=== PATIENT | female | born 1965 | race Caucasian/White ===

== ENCOUNTER 2020-03-07 14:37 | Outpatient (CLI) | payer OTHER, SELFPAY ==
--- NOTE | ~2020-03-07 | MM_ITS ---
EXAMINATION: MM screening tessa BI w nathaly HISTORY: Screening TECHNIQUE: Craniocaudal and mediolateral oblique 3-D tomosynthesis images were obtained and synthetic 2-D images were generated. CAD analysis was submitted and interpreted. COMPARISON: Comparison to multiple prior studies sequentially, with oldest reviewed study dated 01/18. BREAST PARENCHYMAL COMPOSITION: There are scattered areas of fibroglandular density. FINDINGS: There is no evidence of suspicious mass, calcification, or architectural distortion to sugg est malignancy in either breast. There has been no suspicious interval change. IMPRESSION: 1. No mammographic evidence of malignancy. 2. Recommend routine screening mammography in one year. BI-RADS Category 1: Negative Reviewed, dictated and finalized at location A.
== END 2020-03-07 14:38 | disposition home or self-care (01) ==
PROVIDERS: PCP Internal Medicine; Visit Provider Obstetrics & Gynecology
DX: Z12.31 Encounter for screening mammogram for malignant neoplasm of breast (principal)
CPT/HCPCS: 77063; 77067

== ENCOUNTER 2021-03-09 07:32 | Outpatient (CLI) | payer OTHER, SELFPAY ==
--- NOTE | ~2021-03-09 | MM_ITS ---
EXAMINATION: MM screening tessa BI w nathaly HISTORY: Screening TECHNIQUE: Craniocaudal and mediolateral oblique 3-D tomosynthesis images were obtained and synthetic 2-D images were generated. CAD analysis was submitted and interpreted. COMPARISON: Comparison to multiple prior studies sequentially, with oldest reviewed study dated 01/20. BREAST PARENCHYMAL COMPOSITION: There are scattered areas of fibroglandular density. FINDINGS: There is no evidence of suspicious mass, calcification, or architectural distortion to sugg est malignancy in either breast. There has been no suspicious interval change. IMPRESSION: 1. No mammographic evidence of malignancy. 2. Recommend routine screening mammography in one year. BI-RADS Category 1: Negative Reviewed, dictated and finalized at location A.
== END 2021-03-09 07:33 | disposition home or self-care (01) ==
LOC: ANHIMG 07:34
PROVIDERS: PCP Internal Medicine; Visit Provider Obstetrics & Gynecology
DX: Z12.31 Encounter for screening mammogram for malignant neoplasm of breast (principal)
CPT/HCPCS: 77063; 77067

== ENCOUNTER 2022-04-19 17:11 | Emergency (ER) | payer OTHER, SELFPAY ==
[2022-04-19 17:24] VITALS: BP 144/75; PULSE 87; RESP 18; TEMP 36.6; O2SAT 100
--- NOTE | 2022-04-19 17:30 | ED.GENADULT ---
HPI - General Adult General Chief complaint: Upper Respiratory Infection Stated complaint: congestion,abdominal pain Time Seen by Provider: 04/19/22 17:30 Source: patient and RN notes reviewed Mode of arrival: ambulatory Limitations: no limitations History of Present Illness HPI narrative: 56-year-old female presents to the [facility] with complaints of nasal congestion for several weeks. States that she has tried saline nasal washes as well as taking Claritin-D daily. Patient also reports that she has had left lower quadrant intermittent discomfort. Worse with urination. Has not had pain to her abdomen since approximately 1 AM. Related Data Home Medications Medication Instructions Recorded Confirmed loratadine-pseudoephedrine ER 10 1 tablet PO DAILY 04/19/22 04/19/22 mg-240 mg tablet,extended [id number] (Claritin-D 24 Hour) Allergies Allergy/AdvReac Type Severity Reaction Status Date / Time No Known Allergies Allergy Verified 04/19/22 17:31 Review of Systems Review of Systems: All systems reviewed & are unremarkable except as noted in HPI and below Constitutional: Constitutional: Reports no additional constitutional complaints, Denies chills and Denies fever(s) Eyes: Eyes: Reports no additional eye complaints ENT: Reports as per HPI Cardiovascular: Cardiovascular: Reports no additional cardiovascular complaints Respiratory: Respiratory: Reports no additional respiratory complaints Gastrointestinal: Gastrointestinal: Reports as per HPI Musculoskeletal: Musculoskeletal: Reports no additional musculoskeletal complaints Integumentary/Breasts: Skin/Breast: Reports system reviewed and no additional complaints, except as docu Neurologic: Reports system reviewed and no additional complaints, except as documented Psychiatric: Psychiatric: Reports no additional psychiatric complaints Allergic/Immunologic: Allergic/Immunologic: Reports no additional allergic/immunologic complaints PMFSH Social History Social History Smoking status: Never smoker Alcohol intake: never Comments At the time of my signature, I reviewed and agree with the nursing past medical, surgical, social, and family history. There is no relevant family history pertinent to the patient complaint. Exam Const: General: healthy appearing, no acute distress and alert Nutritional Appearance: well nourished Orientation/consciousness: patient oriented x3 Limitations: no limitations HENMT: Head: normal to inspection Ears: external ears normal, TM's normal bilaterally and EAC's normal General nose exam: Normal external nose present and Normal nares present Face and sinus: normal facial exam and sinus tenderness frontal and maxillary Mouth: Yes Normal oral and palatal mucosa present, Yes lip normal and Yes moist mucous membranes Throat: posterior oropharynx normal and uvula midline Eyes: General: appearance normal, both eyes and all related structures Conjunctivae: conjunctivae normal Pupils: Equal, round and reactive pupils present Neck: Neck: normal visual inspection, no lymphadenopathy and no meningeal signs Chest: Chest palpation & inspection: normal inspection of the chest Resp: Effort & Inspection: normal respiratory effort and no use of accessory muscles Auscultation: clear to auscultation bilaterally, no crackles, no rales, no rhonchi and no wheezes Cardio: Rate: regular rate Rhythm: regular rhythm Back/Spine/Pelvis: Cervical Spine: normal cervical lordosis Thoracic/Lumbar Spine: thoracic and lumbar spine normal to inspection Skin: General skin exam: normal color Rashes: no rashes Wounds: no wounds Neuro: General: patient oriented x3, moves all extremities, no meningeal signs and no focal motor deficits Cranial nerves: Yes Equal, round and reactive pupils present Speech: normal speech Gait exam (Neuro): Normal gait present Extrem: General: normal to inspectio
== END 2022-04-19 17:57 | disposition home or self-care (01) ==
PROVIDERS: Emergency Provider Nurse Practitioner; PCP Physician Assistant Medical
DX: J32.9 Chronic sinusitis, unspecified (principal); R10.32 Left lower quadrant pain
CPT/HCPCS: 81003; 99213; G0463

== ENCOUNTER 2022-12-04 18:48 | Emergency (ER) | payer OTHER, SELFPAY ==
--- NOTE | ~2022-12-04 | XR_ITS ---
EXAM: XR forearm RT 2V DATE: 12/04/2022 19:22 HISTORY: fall today/pain mid forearm . COMPARISON: None available. FINDINGS: Decreased mineralization. No fracture or dislocation. No lytic or blastic lesion. Joint sp aces and physes are maintained. No erosion or periosteal change. Soft tissues within normal limits. IMPRESSION: No acute osseous finding in the right forearm. Reviewed, dictated and finalized at location K.
--- NOTE | ~2022-12-04 | XR_ITS ---
EXAM: XR humerus RT DATE: 12/04/2022 19:22 HISTORY: fall today/pain mid humerus . COMPARISON: None available. FINDINGS: Decreased mineralization. No fracture or dislocation. No lytic or blastic lesion. Mild deg enerative change in the right shoulder. No erosion or periosteal change. Soft tissues within normal l imits. IMPRESSION: No acute osseous finding in the right humerus. Reviewed, dictated and finalized at location K.
[2022-12-04 19:08] VITALS: BP 139/72; PULSE 93; RESP 16; TEMP 36.7; O2SAT 100
--- NOTE | 2022-12-04 19:58 | ED.UPPEXIN ---
HPI - Extremity Injury (Upper) General Chief Complaint: Extremity Injury, Upper Stated Complaint: fall rt arm injury Time Seen by Provider: 12/04/22 19:58 Source: patient Mode of arrival: ambulatory Limitations: no limitations History of Present Illness HPI narrative: 57-year-old female presented for complaint of right arm pain after injury today at 6:00 p.m.. She states she was attempting to put car board into the dumpster when she slipped on rocks causing her to land on the right arm. She is unsure if the arm was outstretched, but endorses abrasion to the right palm and right elbow. Pain is located in multiple areas of the right arm. She endorses pain with fully extending the elbow twisting minutes at the wrist. Denies deformity, numbness, tingling, or weakness of the extremity. Has not taken anything for pain. Related Data Allergies Allergy/AdvReac Type Severity Reaction Status Date / Time No Known Allergies Allergy Verified 12/04/22 19:55 Review of Systems Review of Systems: CONSTITUTIONAL: Denies body aches, fever, chills EYES: Denies visual changes ENT: Denies rhinorrhea, congestion CARDIOVASCULAR: Denies chest pain, palpitations, or edema. RESPIRATORY: Denies cough or dyspnea. SKIN: Denies rash, itching, or wounds. MUSCULOSKELETAL: per HPI NEUROLOGIC: Denies headache, numbness, tingling, or weakness. All systems reviewed & are unremarkable except as noted in HPI and below PMFSH Past Medical History Medical History Hyperthyroidism Seasonal allergies Surgical History Surgical History History of 12/30/02 primary c/s w/tubal--twins History of dilation and curettage (02/13/07) hscope d&c--menometrorrhagia/dysmenorrhea History of endometrial ablation (02/27/07) Novasure endometrial ablation History of gynecologic surgery 09/30/98 hscope d&c/dx lscope/chromopertubation History of tubal ligation (12/30/02) Family History Family History Grandparent Breast cancer maternal grandmother paternal grandmother Father Hypertension Social History Social History Smoking status: Never smoker Alcohol intake: current Alcohol use details: occasionally Substance use: never Substance use type: does not use Lack of Transportation: No Lack of Food: Never True Current Housing: I Have Housing Concerned About Future Housing: No Difficulty Paying Gas/Electric Bills: No Difficulty Paying for Meds: No Currently Unemployed: No Education: Master's Degree or Higher Difficulty w/ Childcare or Family Care: No Living arrangements: with family Occupation/Education: occupation 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 Please see nursing chart for further information. There is no relevant family history pertinent to the presenting complaint Exam Narrative: GENERAL: appears in some pain, in no acute distress. HEAD: Normocephalic, atraumatic. EYES: PERRLA, conjunctivae clear NECK: Supple. CHEST: Speaks in full sentences. No respiratory distress. HEART: Regular rate and rhythm. Normal and equal peripheral pulses. EXTREMITIES: Right arm has normal strength and sensation, slightly limited range of motion at elbow, endorses pain with extension and rotation at wrist. No swelling or ecchymosis, No point tenderness, open wounds, or obvious deformity; alignment normal, pulse palpable and equal bilaterally, sk
== END 2022-12-04 20:05 | disposition home or self-care (01) ==
PROVIDERS: Emergency Provider Nurse Practitioner Family; PCP Physician Assistant Medical
DX: M79.621 Pain in right upper arm (principal); M79.631 Pain in right forearm; E05.90 Thyrotoxicosis, unspecified without thyrotoxic crisis or storm
CPT/HCPCS: 73060; 73090; 99214; G0463

== ENCOUNTER 2023-01-11 07:30 | Outpatient (CLI) | payer OTHER, SELFPAY ==
--- NOTE | ~2023-01-11 | MM_ITS ---
EXAMINATION: MM screening tessa BI w nathaly HISTORY: Screening mammogram TECHNIQUE: Craniocaudal and mediolateral oblique 3-D tomosynthesis images were obtained and synthetic 2-D images were generated. CAD analysis was submitted and interpreted. COMPARISON: 03/09/2021, 03/07/2020, 03/03/2019 bilateral screening mammogram examinations BREAST PARENCHYMAL COMPOSITION: There are scattered areas of fibroglandular density. FINDINGS: There is no evidence of suspicious mass, calcification, or architectural distortion to sugg est malignancy in either breast. There has been no suspicious interval change. IMPRESSION: 1. No mammographic evidence of malignancy. 2. Recommend routine screening mammography in one year. BI-RADS Category 1: Negative Reviewed, dictated and finalized at location A.
== END 2023-01-11 07:31 | disposition home or self-care (01) ==
LOC: ANHIMG 07:32
PROVIDERS: PCP Family Medicine; Visit Provider Obstetrics & Gynecology
DX: Z12.31 Encounter for screening mammogram for malignant neoplasm of breast (principal)
CPT/HCPCS: 77063; 77067

== ENCOUNTER 2023-11-27 06:18 | Day surgery (SDC) | payer OTHER, SELFPAY ==
[2023-07-11 15:07] VITALS: BMI 27.5
[2023-11-13 12:00] VITALS: BMI 28.3
[2023-11-27 06:59] VITALS: BMI 28.3
[2023-11-27 07:02] VITALS: BP 126/65; PULSE 78; RESP 14; TEMP 36.9; O2SAT 100
--- NOTE | 2023-11-27 07:04 | WPDANESEPPF ---
Anes - Initial Pre Proc Eval Procedure: Operation Date: 11/27/23 08:00 Proposed Procedures p Screening Colonoscopy - Pantera Mirza MD Date/Time: 11/27/23 07:04 Surgeon: Pantera Mirza MD Pre Op Diagnosis: Neoplasm Screening, Thyrotoxicosis Patient Data Age: 58 Gender: F Height: 1.63 m Weight: 75 kg Last Vital Signs Temp 36.9 C 11/27/23 07:02 Pulse 78 11/27/23 07:02 Resp 14 11/27/23 07:02 BP 126/65 11/27/23 07:02 Pulse Ox 100 11/27/23 07:02 O2 Del Method Room Air 11/27/23 07:02 Allergies Allergy/AdvReac Type Severity Reaction Status Date / Time No Known Allergies Allergy Verified 11/27/23 06:55 Home Medications Medication Instructions Recorded Confirmed Type vitamin E 400 unit tablet 400 unit PO DAILY 11/13/23 11/27/23 History phentermine 37.5 mg tablet 37.5 mg PO DAILY #30 tabs 11/14/23 Rx Patient hx anesthesia problems: none Family hx anesthesia problems: none Results Review: All pre-operative results and documents have been reviewed as part of the pre-operative evaluation. [facility] Past Medical History Medical History (Updated 11/27/23 @ 07:07 by South Romero DO) Cervicalgia Hyperthyroidism 20 years ago during Right shoulder pain Screening mammogram, encounter for Seasonal allergies Weight loss counseling, encounter for Surgical History Surgical History History of 12/30/02 primary c/s w/tubal--twins History of dilation and curettage (02/13/07) hscope d&c--menometrorrhagia/dysmenorrhea History of endometrial ablation (02/27/07) Novasure endometrial ablation History of gynecologic surgery 09/30/98 hscope d&c/dx lscope/chromopertubation History of tubal ligation (12/30/02) Family History Family History Grandparent Breast cancer maternal grandmother paternal grandmother Father Hypertension Social History Social History Smoking status: Never smoker Alcohol intake: current Alcohol use details: occasionally 1-2 times a month Substance use: never Substance use type: does not use Lack of Transportation: No Lack of Food: Never True Current Housing: I Have Housing Concerned About Future Housing: No Difficulty Paying Gas/Electric Bills: No Difficulty Paying for Meds: No Currently Unemployed: No Education: Master's Degree or Higher Difficulty w/ Childcare or Family Care: No Living arrangements: with family Additional living arrangements comments: Occupation/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 patient): 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 Sexual Orientation (if Verbalized by the Patient): Straight or Heterosexual Spiritual care concerns: No Agree to blood products: Yes Anes - Eval Final PreProcedure Day of Procedure 11/27/23 07:04 Patient weight: overweight Heart: regular rate and rhythm Lungs: clear to auscultation Airway: Mallampati scale class II Neurological: alert and oriented Last oral intake: >/= 8 hours ASA classification: II Emergent: no Anesthetic plan: proceed Anesthesia type and monitoring: general GIVS and standard monitoring Results Review: All pre-operative results and documents have been reviewed as part of the pre-operative evaluation. Informed Consent: The patient's anesthetic plan and its attendant risks and benefits were discussed with the patient/family/POA. Questions were solicited and answers provided to the satisfaction of the patient/family/POA.
[2023-11-27] MEDS: LACTATED RINGERS 1,000 ML 150 ML IV CONT (07:25)
--- NOTE | 2023-11-27 07:38 | PM.HPGS ---
History of Present Illness History of Present Illness Consent: Risks, benefits, and alternatives have been discussed and questions answered. Patient agrees to proceed with procedure. Chief complaint: Neoplasm Screening Narrative: Sandra Valencia is a 58 year old female presents for screening colonoscopy. Patient's current weight bowel movements are normal. She denies abdominal pain. Patient has had no bleeding. Family history noncontributory. Review of Systems Review of Systems: All systems reviewed & are unremarkable except as noted in HPI and below PMFSH Past Medical History Medical History (Updated 11/27/23 @ 07:07 by South Romero, ) Cervicalgia Hyperthyroidism 20 years ago during Right shoulder pain Screening mammogram, encounter for Seasonal allergies Weight loss counseling, encounter for Surgical History Surgical History History of 12/30/02 primary c/s w/tubal--twins History of dilation and curettage (02/13/07) hscope d&c--menometrorrhagia/dysmenorrhea History of endometrial ablation (02/27/07) Novasure endometrial ablation History of gynecologic surgery 09/30/98 hscope d&c/dx lscope/chromopertubation History of tubal ligation (12/30/02) Family History Family History Grandparent Breast cancer maternal grandmother paternal grandmother Father Hypertension Social History Social History Smoking status: Never smoker Alcohol intake: current Alcohol use details: occasionally 1-2 times a month Substance use: never Substance use type: does not use Lack of Transportation: No Lack of Food: Never True Current Housing: I Have Housing Concerned About Future Housing: No Difficulty Paying Gas/Electric Bills: No Difficulty Paying for Meds: No Currently Unemployed: No Education: Master's Degree or Higher Difficulty w/ Childcare or Family Care: No Living arrangements: with family Additional living arrangements comments: 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 Sexual Orientation (if Verbalized by the Patient): Straight or Heterosexual Spiritual care concerns: No Agree to blood products: Yes Meds Home Medications and Allergies Home Medications Medication Instructions Recorded Confirmed Type vitamin E 400 unit tablet 400 unit PO DAILY 11/13/23 11/27/23 History phentermine 37.5 mg tablet 37.5 mg PO DAILY #30 tabs 11/14/23 Rx Allergies Allergy/AdvReac Type Severity Reaction Status Date / Time No Known Allergies Allergy Verified 11/27/23 06:55 Vital Signs Vital Signs - 24 hr 11/27/23 07:02 Temperature 98.4 F Pulse Rate 78 Respiratory Rate 14 Blood Pressure 126/65 Pulse Oximetry 100 Oxygen Delivery Room Air Exam Narrative: Physical exam reveals patient to be alert. Will signs stable. HEENT exam is unremarkable. Patient is anicteric. Lungs are clear to auscultation and percussion. Heart is without murmur or extra sounds. Abdomen bowel sounds are present soft nontender with no hepatosplenomegaly. Digital and external rectal exam is normal. Assessment and Plan Assessment and plan (1) Screening for colon cancer: Code(s): Z12.11 - Encounter for screening for malignant neoplasm of colon Status: Acute Assessment and Plan: S today for screening colonoscopy. She appears to be at average risk for colon polyps.
[2023-11-27 08:13] VITALS: BP 114/67; PULSE 78; RESP 16; O2SAT 97
[2023-11-27 08:23] VITALS: BP 112/68; PULSE 67; RESP 14; O2SAT 99
[2023-11-27 08:33] VITALS: BP 111/78; PULSE 68; RESP 15; O2SAT 100
--- NOTE | 2023-11-27 11:16 | WPDANESPN ---
Anes - Prog Note Post-Op Date/Time: 11/27/23 11:16 Cardiovascular status: normal Respiratory status: normal Airway patency: baseline Mental status: baseline Post-Op hydration status: normal Vital Signs: Last Vital Signs Temp 36.9 C 11/27/23 07:02 Pulse 68 11/27/23 08:33 Resp 15 11/27/23 08:33 BP 111/78 11/27/23 08:33 Pulse Ox 100 11/27/23 08:33 O2 Del Method Room Air 11/27/23 08:33 Pain Score (VAS): 0 I/O: Intake & Output 11/26/23 11/27/23 11/27/23 23:59 07:59 15:59 Intake Total 100 Balance 100 Post-procedural complaints: none Patient Feedback: Patient satisfied with anesthetic care. Other Findings: Patient vital signs back to baseline. Patient denies nausea and vomiting. Patient's pain under control. Patient OK for discharge.
== END 2023-11-27 08:43 | disposition home or self-care (01) ==
PROVIDERS: PCP Physician Assistant Medical; Visit Provider Internal Medicine Gastroenterology
PROC: 0DJD8ZZ Inspection of Lower Intestinal Tract, Via Natural or Artificial Opening Endoscopic (ICD-10-PCS; CPT 45378; principal; 2023-11-27 08:00)
DX: Z12.11 Encounter for screening for malignant neoplasm of colon (principal); K64.8 Other hemorrhoids
CPT/HCPCS: 45378

== ENCOUNTER 2023-12-21 08:06 | Emergency (ER) | payer OTHER, SELFPAY ==
[2023-12-21 08:14] VITALS: BP 141/75; PULSE 75; RESP 18; TEMP 36.2; O2SAT 100
--- NOTE | 2023-12-21 08:22 | ED.GENADULT ---
HPI - General Adult General Chief complaint: Unspecified Stated complaint: Hemorrhoid Time Seen by Provider: 12/21/23 08:16 Source: patient and RN notes reviewed Mode of arrival: ambulatory Limitations: no limitations History of Present Illness HPI narrative: Patient presents today complaining of an external hemorrhoid that has been present for approximately 3 weeks. The discomfort has worsened over the last several days. She has contacted her PCP who sent in a prescription yesterday for some hydrocortisone suppositories. She did use 1 of those last night for the 1st time and has also been using preparation H externally with tucks pads. She also started on a fiber supplement. Related Data Allergies Allergy/AdvReac Type Severity Reaction Status Date / Time No Known Allergies Allergy Verified 12/21/23 08:17 Review of Systems Review of Systems: CONSTITUTIONAL: Denies body aches, fever, chills, or sweats. EYES: Denies visual changes, redness, or discharge. ENT: Denies rhinorrhea, congestion, sore throat, or otalgia. CARDIOVASCULAR: Denies chest pain, palpitations, or edema. RESPIRATORY: Denies cough or dyspnea. GASTROINTESTINAL: Denies abdominal pain, nausea, vomiting, or diarrhea.+ hemorrhoid GENITOURINARY: Denies dysuria or hematuria. SKIN: Denies rash, itching, or wounds. MUSCULOSKELETAL: Denies back pain, joint pain, or myalgia. NEUROLOGIC: Denies headache, numbness, tingling, or weakness. PSYCH: Denies depression or anxiety. [facility] Past Medical History Medical History Cervicalgia Hyperthyroidism 20 years ago during Right shoulder pain Screening mammogram, encounter for Seasonal allergies Weight loss counseling, encounter for Surgical History Surgical History History of 12/30/02 primary c/s w/tubal--twins History of dilation and curettage (02/13/07) hscope d&c--menometrorrhagia/dysmenorrhea History of endometrial ablation (02/27/07) Novasure endometrial ablation History of gynecologic surgery 09/30/98 hscope d&c/dx lscope/chromopertubation History of tubal ligation (12/30/02) Family History Family History Grandparent Breast cancer maternal grandmother paternal grandmother Father Hypertension Social History Social History Smoking status: Never smoker Alcohol intake: current Alcohol use details: occasionally 1-2 times a month Substance use: never Substance use type: does not use Lack of Transportation: No Lack of Food: Never True Current Housing: I Have Housing Concerned About Future Housing: No Difficulty Paying Gas/Electric Bills: No Difficulty Paying for Meds: No Currently Unemployed: No Education: Master's Degree or Higher Difficulty w/ Childcare or Family Care: No Living arrangements: with family Additional living arrangements comments: 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 Please see nursing chart for further information. There is no relevant family history pertinent to the presenting complaint Exam Narrative: GENERAL: Well-appearing, well-nourished, and in no acute distress. HEAD: Normocephalic, atraumatic. EYES: EOMI. No redness or drainage. Conjunctivae normal. ENT: Mucous membranes pink and moist. NECK: Normal AROM. CHEST: No respiratory distress. 1x1.5cm ext
== END 2023-12-21 08:38 | disposition home or self-care (01) ==
PROVIDERS: Emergency Provider Nurse Practitioner; PCP Physician Assistant Medical
DX: K64.4 Residual hemorrhoidal skin tags (principal)
CPT/HCPCS: 99211; G0463

== ENCOUNTER 2023-12-23 10:30 | Emergency (ER) | payer OTHER, SELFPAY ==
[2023-12-23 10:32] VITALS: BP 139/65; PULSE 79; RESP 16; TEMP 36.5; O2SAT 100
--- NOTE | 2023-12-23 12:10 | ED.GENADULT ---
HPI - General Adult General Chief complaint: Unspecified Stated complaint: hemorrhoid Time Seen by Provider: 12/23/23 11:59 History of Present Illness HPI narrative: Patient is a 58-year-old female here with bleeding external hemorrhoids. She notes that on November 26 she had a screening colonoscopy which did she had some hemorrhoids present. Over the last 3-4 days she started noticing some bulging perianally as well as some pain. She attempt to contact her primary care doctor who was unable to see her but did start her on hydrocortisone suppositories and recommended talked pads and preparation H cream. Patient went in to be evaluated at a local urgent care 2 days ago. They recommended starting stool softeners and sitz baths. She states that yesterday she started noticing some blood in her stool and in her underwear. She notes some decreased pain since it started bleeding. She has had some small clots and blood on the toilet paper. she has been doing all recommended medications however she has been unable to do any Sitz baths over the weekend this weekend due to the fact that she was camping. Related Data Allergies Allergy/AdvReac Type Severity Reaction Status Date / Time No Known Allergies Allergy Verified 12/23/23 10:31 Review of Systems Review of Systems: All systems reviewed & are unremarkable except as noted in HPI and below PMFSH Past Medical History Medical History Cervicalgia Hyperthyroidism 20 years ago during Right shoulder pain Screening mammogram, encounter for Seasonal allergies Weight loss counseling, encounter for Surgical History Surgical History History of 12/30/02 primary c/s w/tubal--twins History of dilation and curettage (02/13/07) hscope d&c--menometrorrhagia/dysmenorrhea History of endometrial ablation (02/27/07) Novasure endometrial ablation History of gynecologic surgery 09/30/98 hscope d&c/dx lscope/chromopertubation History of tubal ligation (12/30/02) Family History Family History Grandparent Breast cancer maternal grandmother paternal grandmother Father Hypertension Social History Social History Smoking status: Never smoker Alcohol intake: current Alcohol use details: occasionally 1-2 times a month Substance use: never Substance use type: does not use Lack of Transportation: No Lack of Food: Never True Current Housing: I Have Housing Concerned About Future Housing: No Difficulty Paying Gas/Electric Bills: No Difficulty Paying for Meds: No Currently Unemployed: No Education: Master's Degree or Higher Difficulty w/ Childcare or Family Care: No Living arrangements: with family Additional living arrangements comments: Occupation/Education: retired 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 HEAD: Normocephalic, atraumatic. EYES: PERRLA and EOMI. ENT: Nares clear. Mucous membranes moist. NECK: Supple. CHEST: Clear to auscultation. No respiratory distress. HEART: Regular rate and rhythm. Normal peripheral pulses. ABDOMEN: Soft, nontender, nondistended. EXTREMITIES: Normal range of motion. No edema. : (Exam performed with GILBERTO Rizvi as train operator) Patient has a 1 cm size external hemorrhoid which has minimal active bleeding around the 5 o'clock position. Mildly tender on exam. SKIN: Warm, dry, no rash. NEURO: No focal deficits. Alert and oriented x3. PSYCH
--- NOTE | 2023-12-23 12:22 | PC.NURSE ---
Patient states that she has pain and discomfort, that she had a call in with her primary physician and went to urgent care, that it is still bothering her and she is using ointments, creams, tucks pads, and is leaving town tomorrow and just wants to make sure that she is doing everything that she needs to be
[2023-12-23 13:58] VITALS: BP 137/62; PULSE 73; RESP 18; TEMP 36.4; O2SAT 99
== END 2023-12-23 13:59 | disposition home or self-care (01) ==
PROVIDERS: Emergency Provider Student in an Organized Health Care Education/Training Program; PCP Physician Assistant Medical
DX: K64.4 Residual hemorrhoidal skin tags (principal)
CPT/HCPCS: 99281

== ENCOUNTER 2024-01-16 16:19 | Outpatient (CLI) | payer OTHER, SELFPAY ==
--- NOTE | ~2024-01-16 | MM_ITS ---
EXAMINATION: MM screening tessa BI w nathaly HISTORY: Screening TECHNIQUE: Craniocaudal and mediolateral oblique 3-D tomosynthesis images were obtained and synthetic 2-D images were generated. CAD analysis was submitted and interpreted. COMPARISON: Comparison to multiple prior studies sequentially, with oldest reviewed study dated 07/2016. BREAST PARENCHYMAL COMPOSITION: Not dense: There are scattered areas of fibroglandular density. FINDINGS: There is no evidence of suspicious mass, calcification, or architectural distortion to sugg est malignancy in either breast. There has been no suspicious interval change. IMPRESSION: 1. No mammographic evidence of malignancy. 2. Recommend routine screening mammography in one year. BI-RADS Category 1: Negative Reviewed, dictated and finalized at location B.
== END 2024-01-16 16:20 | disposition home or self-care (01) ==
LOC: ANHIMG 16:21
PROVIDERS: PCP Physician Assistant Medical; Visit Provider Obstetrics & Gynecology
DX: Z12.31 Encounter for screening mammogram for malignant neoplasm of breast (principal)
CPT/HCPCS: 77063; 77067

== ENCOUNTER 2024-05-13 07:37 | Outpatient (CLI) | payer OTHER, SELFPAY ==
--- NOTE | ~2024-05-13 | DEXA_ITS ---
Bone Density Report Name: VICENTE NEWMAN Age: 58 Sex: Female Ethnicity: White Date of : 1965 Indication: postmenopausal; screening for osteoporosis; Referring Provider: AMPARO DALTON I. Study: Bone densitometry was performed. Exam Date: May 13, 2024 Accession number: [id number] Bone Density: Region BMD T-score Z-score Classification AP Spine(L1-L4) 0.838 -1.9 -0.5 Osteopenia Femoral Neck (Left) 0.660 -1.7 -0.4 Osteopenia Total Hip (Left) 0.823 -1.0 -0.1 Normal Femoral Neck (Right) 0.689 -1.4 -0.2 Osteopenia Total Hip (Right) 0.788 -1.3 -0.3 Osteopenia Total Hip Mean 0.806 -1.2 -0.2 Osteopenia World Health Organization criteria for BMD impression classify patients as: Normal (T-score at or above -1.0), Osteopenia (T-score between -1.0 and -2.5), or Osteoporosis (T-score at or below -2.5). 10-year Fracture Risk(1): Major Osteoporotic Fracture 8.3% Hip Fracture 0.8% Reported Risk Factors: [place] (), Neck BMD=0.660, BMI=30.2 (1) FRAX(R) Version 3.08. Fracture probability calculated for an untreated patient. Fracture probability may be lower if the patient has received treatment. Clinical Information Provided by Patient: Has used the following medications: Vitamin D Patient maximum height was 64 Menopause Age: 44 No regular weight bearing exercise Drinks caffeinated beverages Onset of menses at age 11 Number of children 2 Impression: The patient has low bone mass, based on the Total Spine T-score. The patient has an estimated ten-year risk of hip fracture of 0.8% and an estimated ten-year risk of major fracture of 8.3%, based on the WHO FRAX algorithm. Discussion: BONE DENSITY IS LOW AT ONE OR MORE SKELETAL SITES. This patient's lowest T-score is low at one or more skeletal sites. It meets the World Health Organization's (WHO) criteria for ?low bone mass? (T-score between -1.0 and -2.5). The patient's 10-year risk of fracture as calculated by FRAX is less than the threshold where pharmacological therapy is recommended by the National Osteoporosis Foundation (NOF). However, all treatment decisions require clinical judgment and consideration of individual patient factors, including patient preferences, comorbidities, previous drug use, risk factors not captured in the FRAX model (e.g., frailty, falls, vitamin D deficiency, increased bone turnover, interval significant decline in bone density) and possible under or overestimation of fracture risk by FRAX. The patient should follow a healthful lifestyle (good nutrition with adequate calcium and vitamin D, and appropriate weight-bearing exercise). Follow-Up: Consider repeating this study in 2 to 3 years to reassess this patient's status, or sooner if there is some new clinical indication. Reported by: CHARLEE on
== END 2024-05-13 07:38 | disposition home or self-care (01) ==
LOC: ANHIMG 07:38
PROVIDERS: PCP Physician Assistant Medical; Visit Provider Physician Assistant Medical
DX: Z78.0 Asymptomatic menopausal state (principal); M85.88 Other specified disorders of bone density and structure, other site; M85.852 Other specified disorders of bone density and structure, left thigh; M85.851 Other specified disorders of bone density and structure, right thigh
CPT/HCPCS: 77080

== ENCOUNTER 2025-01-25 14:14 | Outpatient (CLI) | payer OTHER, SELFPAY ==
--- NOTE | ~2025-01-25 | MM_ITS ---
EXAMINATION: MM screening tessa BI w nathaly HISTORY: Screening mammogram TECHNIQUE: Craniocaudal and mediolateral oblique 3-D tomosynthesis images were obtained and synthetic 2-D images were generated. CAD analysis was submitted and interpreted. COMPARISON: 01/16/2024, 01/11/2023, 03/09/2021 BREAST PARENCHYMAL COMPOSITION:Not Dense. The breasts are almost entirely fatty FINDINGS: No suspicious mass, calcification, or architectural distortion are identified in either cris ast to suggest malignancy. There has been no suspicious interval change. IMPRESSION: No mammographic evidence of malignancy. Recommend routine screening mammography in one year. BI-RADS Category 1: Negative Reviewed, dictated and finalized at location .
--- OUTSIDE RECORDS SUMMARY | 2025-01-25 14:29 | XMS_ITS | Clinical Summary ---
Author Organization [facility] Address [facility] [place] [address] Care Team Providers Care Wood Gang Sawyer Name Role Phone Hailee Álvarez Primary Care Provider Allergies No known active allergies Medications Multiple Vitamins-Minera ls (MULTIPLE VITAMINS/WOMENS ) Tab Multiple Vitamins/Wome ns Oral [id number] Active vitamin B-12 (CYANOCOBALAMIN ) 500 MCG tablet Vitamin B-12 [id number] Active Cholecalciferol (VITAMIN D3) 20 MCG (800 UNIT) Tab Vitamin D3 [id number] 013Active Active methylPREDNISol one, NITO, (MEDROL DOSEPAK) 4 MG tabletIndicatio ns:Sore throat,Right calf pain 6 TABLETS ON DAY ONE, 5 TABLETS DAY TWO, 4 TABLETS DAY THREE, 3 TABLETS DAY FOUR, 2 TABLETS DAY FIVE, AND 1 TABLET DAY SIX 1 each 07/15/2024 Active Active Problems No known active problems Immunizations Immunization Administration Dates Next Due Flucelvax 6 Months+ (Prefilled Syringe) 05/11/20 20,05/21/2019 Influenza (Generic) 05/07/2012 MODERNA COVID-19 (12+) MRNA, LNP-S, PF, 100 MCG/ 0.5 ML DOSE 09/30/2020,09/02/2020 Social History Tobacco Use Types Packs/Day Years Used Date Smoking Tobacco: Never Smokeless Tobacco: Never Alcohol Use Standard Drinks/Week Comments Yes 0 (1 standard drink = 0.6 oz pur e alcohol) Comments Unknown Sex and Gender Information Value Date Recorded Sex Assigned at Not on file Legal Sex Female 7:29 PM CDT Gender Identity Not on file Sexual Orientation Not on file Last Filed Vital Signs Vital Sign Reading Time Taken Comments Blood Pressure 132/79 07/15/2024 2:06 PM MANAGER TERMINAL Pulse 74 07/15/2024 2:06 PM MANAGER TERMINAL Temperature 36.3 C (97.3 F) 07/15/2024 2:06 PM MANAGER TERMINAL Respiratory Rate 18 07/15/2024 2:06 PM MANAGER TERMINAL Oxygen Saturation 99% 07/15/2024 2:06 PM MANAGER TERMINAL Inhaled Oxygen Concentration - - Weight 80.8 kg (178 lb 3.2 oz) 07/15/2024 2:06 P M MANAGER TERMINAL Height 162.6 cm (5' 4) 07/15/2024 2:06 PM MANAGER TERMINAL Body Mass Index 30.59 07/15/2024 2:06 PM MANAGER TERMINAL Plan of Treatment Health Maintenance Due Date Last Done Comments Cervical Cancer Screening Pap Smear (Age 30 to 64) Every 3 Years 1964 Colorectal Cancer Screening Colonoscopy (10 Years) 1965 Annual Physical 10/06/1967 Hepatitis C 1982 Cervical Cancer Screening Pap with HPV Testing (Age 30 to 64) Every 5 Years 1994 Cervical Cancer Screening with HPV 1994 Mammogram Screening 2004 Pneumococcal Vaccine: 50+ Years (1 of 1 - PCV) 2014 PHQ-2 (Physician [place]) 07/29/2024 DTaP, Tdap and Td Vaccines (2 - Td or Tdap) 02/05/2032 02/04/2022 RSV Immunization or 60+ Years (1 - 1-dose 75+ series) 10/06/2039 Zoster Vaccines Completed 05/19/2022, 03/09/2022 COVID-19 Vaccine Completed 03/27/2024, , 05/27/2022, Additional history exists Meningococcal B Vaccine Aged Out No l onger eligible based on patient's age to complete this topic Meningococcal Vaccine Aged Out No shelton chelsea eligible based on patient's age to complete this topic RSV Immunizations Under 20 Months Aged Out No longer eligible based on patient's age to complete this topic Insurance Care Teams Wood Gang Sawyer Relationship Specialty Start Date End Date Hailee Álvarez PA [address] [place] [id number] PCP - General 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
== END 2025-01-25 14:15 | disposition home or self-care (01) ==
LOC: ANHIMG 14:16
PROVIDERS: PCP Physician Assistant Medical; Visit Provider Obstetrics & Gynecology
DX: Z12.31 Encounter for screening mammogram for malignant neoplasm of breast (principal)
CPT/HCPCS: 77063; 77067